=== PATIENT | female | born 1960 | race Caucasian/White ===

== ENCOUNTER 2016-09-20 05:38 | Inpatient (IN) | payer MEDICAID ==
[~2016-09-20 05:38] MED LIST: Acetaminophen 500 MG Tab PO ONE; Celecoxib 200 MG Cap PO ONE; Gabapentin 300 MG Cap PO ONE; Scopolamine 1.5 MG Transdermal Patch TOP ONE
[2016-09-20] MEDS ORDERED: Dextrose 5%-Lactated Ringers 1,000 ML IV SCH (06:00)
[2016-09-20] MEDS ORDERED: cefOXitin 2 GM in Sodium Chloride 0.9% 100 ML IV ONE (06:30)
[2016-09-20] MEDS ORDERED: cefOXitin 2 GM in Sodium Chloride 0.9% 50 ML IV ONE (06:30)
[2016-09-20] MEDS ORDERED: cefOXitin 2 GM Vial ONE (06:46)
[2016-09-20] MEDS ORDERED: Dexamethasone 4 MG/ML SDV ONE (07:19)
[2016-09-20] MEDS ORDERED: Rocuronium 50 MG/5 ML Vial ONE (07:19)
[2016-09-20] MEDS ORDERED: Neostigmine Methylsulfate 1 MG/ML 5 ML Syringe ONE (07:19)
[2016-09-20] MEDS ORDERED: fentaNYL 250 MCG/5 ML SDV ONE (07:19)
[2016-09-20] MEDS ORDERED: Propofol 200 MG/20 ML SDV ONE (07:19)
[2016-09-20] MEDS ORDERED: Succinylcholine/Normal Saline 200 MG/10 ML Syringe ONE (07:19)
[2016-09-20] MEDS ORDERED: Ondansetron 4 MG/2 ML SDV ONE (07:19)
[2016-09-20] MEDS ORDERED: Lactated Ringers 1,000 ML ONE ×2 (07:21→08:36)
[2016-09-20] MEDS ORDERED: Ropivacaine 47 ML, Dexamethasone 8 MG, EPINEPHrine 0.4 MG, Sodium Chloride 0.9% 30.6 ML NERVRT SCH ×4 (07:45)
[2016-09-20] MEDS ORDERED: Ketamine 500 MG/5 ML MDV IV SCH (07:45)
[2016-09-20] MEDS ORDERED: Lidocaine 2% 100 MG/5 ML Syringe IVPUSH ONE ×2 (07:45)
[2016-09-20] MEDS ORDERED: Insulin Aspart 100 Units/ML 3 ML Pen SUBCUT ONE ×2 (09:45→16:29)
[2016-09-20] MEDS: Liraglutide (rDNA Origin) 0.6 MG/0.1 ML 3 ML Pen SUBCUT SCH (09:55)
[2016-09-20] MEDS ORDERED: Labetalol 20 MG/4 ML Syringe IVPUSH PRN (10:55)
[2016-09-20] MEDS ORDERED: SCOPOLAMINE PATCH ASK TOP SCH (10:55)
[2016-09-20] MEDS ORDERED: Ondansetron 4 MG/2 ML SDV IVPUSH PRN (10:55)
[2016-09-20] MEDS ORDERED: hydrOXYzine HCl 50 MG/ML SDV IM PRN (10:55)
[2016-09-20] MEDS ORDERED: Metoclopramide 10 MG/2 ML SDV IV PRN (10:59)
[2016-09-20] MEDS ORDERED: diphenhydrAMINE 50 MG/ML SDV IV PRN (11:00)
[2016-09-20] MEDS: Dextrose 5%-Lactated Ringers 1,000 ML IV SCH (11:15)
[2016-09-20] MEDS: Lidocaine 0.4%/D5W 2 GM/500 ML BAG IV SCH (11:15)
[2016-09-20] MEDS: Doxycycline 100 MG in Sodium Chloride 0.9% 100 ML IV SCH ×2 (12:06→23:24)
[2016-09-20] MEDS ORDERED: Pantoprazole 40 MG Vial IVPUSH SCH (14:00)
[2016-09-20] MEDS: Gabapentin 250 MG/5 ML Solution ML 470 ML Bottle PO SCH ×3 (14:02→22:15)
[2016-09-20] MEDS ORDERED: MVI, Adult with Vitamin K 10 ML, Thiamine 200 MG, Chromium/Copper/Mang/Selen/Zn 1 ML in... IV SCH ×4 (16:00)
[2016-09-20] MEDS: Acetaminophen Soln 650 MG/20.3 ML UD Cup PO SCH ×2 (16:34→22:13)
[2016-09-20] MEDS: Heparin Sodium 5,000 Units/ML Vial SUBCUT SCH (17:25)
[2016-09-20] MEDS ORDERED: Insulin Detemir 100 Units/ML 3 ML Pen SUBCUT ONE (21:00)
[2016-09-20] MEDS: Insulin Aspart 100 Units/ML 3 ML Pen SUBCUT PRN (22:10)
[2016-09-20] MEDS: Metoprolol Tartrate 25 MG Tab PO SCH ×2 (22:13→22:19)
[2016-09-21] MEDS: Dextrose 5%-Lactated Ringers 1,000 ML IV SCH ×2 (01:02→06:43)
[2016-09-21] MEDS: Lidocaine 0.4%/D5W 2 GM/500 ML BAG IV SCH (01:03)
[2016-09-21] MEDS ORDERED: Iohexol 647 MG/ML 50 ML SDV PO STA (03:50)
[2016-09-21] MEDS: Acetaminophen Soln 650 MG/20.3 ML UD Cup PO SCH ×4 (04:30→21:53)
[2016-09-21] MEDS: Insulin Aspart 100 Units/ML 3 ML Pen SUBCUT PRN ×3 (04:41→16:41)
[2016-09-21] MEDS: Heparin Sodium 5,000 Units/ML Vial SUBCUT SCH ×2 (06:43→17:37)
[2016-09-21] MEDS ORDERED: Insulin Detemir 100 Units/ML 3 ML Pen SUBCUT ONE ×2 (06:50→20:00)
[2016-09-21] MEDS ORDERED: LORazepam 1 MG Tab PO PRN (07:11)
[2016-09-21] MEDS ORDERED: Dextrose 5%-Lactated Ringers 1,000 ML IV SCH (07:15)
--- NOTE | 2016-09-21 08:16 | PN ---
DATE OF SERVICE: 09/21/2016 SUBJECTIVE: Barbara is postop day #1. Her upper GI was normal this morning. Blood sugars have been 363, 343, and 343. She has received coverage per sliding scale. She did receive labetalol twice during the night for elevated blood pressure. Pain is controlled. Tolerating the step-one diet. She has been up and ambulating. OBJECTIVE: GENERAL: Barbara is a 55-year-old female. VITAL SIGNS: TPR is 98.6, 92, 16, blood pressure 137/73. HEENT: Negative. NECK: Supple. HEART: Regular rate and rhythm. LUNGS: Clear. ABDOMEN: Dressings dry and intact. Abdominal binder is on. She has had 80 mL out of her WANDA drain of a light pink serous drainage. EXTREMITIES: Without peripheral edema. ASSESSMENT: Laparoscopic Satnam-en-Y gastric bypass surgery, liver biopsy, repair of diaphragmatic hernia, and excision of peritoneal nodules x2 for morbid obesity, hepatomegaly, diaphragmatic hernia, peritoneal nodules x2 on date 09/20/2016. PLAN: 1. Give Lantus 30 units subcu now, 2 Lantus 40 units subcu at bedtime. 2. Step 2 without cereal gastric bypass diet. 3. Decrease IV rate to 100 mL per hour now. 4. Dressing off, may shower. 5. Restart home medication of Cymbalta 30 mg daily. 6. Cymbalta 60 mg at bedtime. 7. Ativan 1 mg p.o. b.i.d. p.r.n., and she is already on the Cozaar 100 mg p.o. daily. 8. Good pulmonary toilet encouraged. 9. We will evaluate p.r.n. or in a.m. Renée Navarrete PA-C /[id number]
[2016-09-21] MEDS: Celecoxib 200 MG Cap PO SCH (09:03)
[2016-09-21] MEDS: Losartan 50 MG Tab PO SCH (09:03)
[2016-09-21] MEDS: DULoxetine 30 MG Cap PO SCH ×2 (09:04→20:26)
[2016-09-21] MEDS: SCOPOLAMINE PATCH CHECK TOP SCH (09:08)
[2016-09-21] MEDS: Liraglutide (rDNA Origin) 0.6 MG/0.1 ML 3 ML Pen SUBCUT SCH (09:08)
--- NOTE | 2016-09-21 09:14 | CR ---
UGI wo KUB HISTORY: Post gastric bypass surgery. COMPARISON: None FINDINGS: Contrast within the gastric remnant demonstrates no extravasation. There is no obstruction . Second image demonstrates contrast predominantly in normal caliber small bowel distal to the anast omosis. Surgical drain present. Epidural catheter present.
[2016-09-21] MEDS: Gabapentin 250 MG/5 ML Solution ML 470 ML Bottle PO SCH ×3 (09:15→20:27)
--- NOTE | 2016-09-21 09:39 | OR ---
DATE OF PROCEDURE: 09/20/2016 PREOPERATIVE DIAGNOSIS: Morbid obesity. POSTOPERATIVE DIAGNOSES: 1. Morbid obesity. 2. Marked hepatomegaly. 3. Paraesophageal diaphragmatic hernia. 4. Peritoneal nodules located over the angle of His, peritoneum. OPERATIVE PROCEDURE: 1. Laparoscopic Satnam-en-Y gastric bypass, along with gastroenterostomy (71602). 2. Amaury-Cut needle liver biopsy (83893). 3. Repair of paraesophageal diaphragmatic hernia (88000). 4. Excision of peritoneal nodules at the angle of His (52967). ANESTHESIA: General. CONFECTIONERY COOKER: Renée Navarrete PA-C. INDICATIONS FOR PROCEDURE: This is a 55-year-old female presenting with longstanding morbid obesity and increasingly significant comorbidities, especially increasingly difficult to manage her type 2 diabetes. Plan is to proceed with a laparoscopic Satnam-en-Y gastric bypass. Potential risks of the procedure including bleeding, infection, leaks from various GI tract closures, problems with bowel obstruction over time, as well as possibility of cardiopulmonary, septic, or hemorrhagic complications leading to were discussed, and the patient wishes to proceed. DETAILS OF PROCEDURE: The patient was taken to the operating room. After general endotracheal anesthesia was induced, the patient was placed in a lithotomy position. The abdomen was then prepped and draped. Bilateral subcostal transversus abdominis plane bocks were then placed using 40 mL of normal saline containing bupivacaine, dexamethasone and epinephrine. These blocks were placed under continuous ultrasound guidance, and after confirming accurate location of the injection, these were done. A gastrointestinal balloon catheter was placed. At 15 cm inferior, 5 cm left of xiphoid process, a transverse incision was made and the peritoneal cavity entered under direct vision with Optiview trocar, inflated to 15 mmHg pressure of CO2. Laparoscope was then reinserted. No underlying trocar insertion site injuries were seen. Following this, 5 additional trocars were placed across the upper and mid abdomen, and general exploration was undertaken. The patient was noted to have a fairly striking hepatomegaly with the liver being densely fatty infiltrated and roughly 3 times normal volume. Amaury-Cut needle biopsy was obtained from the left lobe of the liver. Minimal bleeding of the biopsy sites was controlled with electrocautery. At this point, the omentum was then divided in the midline up to the level of the transverse colon. This allowed identification of the small bowel to the ligament of Treitz. Small bowel was then traced out 200 cm distal to that point, where it was divided transversely with a SABINE stapler. Small bowel was then traced out an additional 200 cm, where the side-to- side enteroenterostomy was accomplished with internal firing of the Endo-SABINE 60 mm stapler. The common opening was then closed transversely with the same stapler, angles anastomosed, and mesenteric defect approximated with some 0 Ethibond stitch along with fibrin sealant. The divided end of the Satnam limb was then from the mesentery for a few centimeters, which allowed an antecolic position of the Satnam limb up to the level of the gastroesophageal junction without tension. The liver was then retracted anteriorly. Two findings were present, one was a paraesophageal diaphragmatic hernia. This included some prolapse of gastric fundus and perigastric fat in a plane anterior to the course of the esophagus. As this was reduced, there were two roughly 1-2 mm whitish nodules on the peritoneum overlying the angle of His. These were excised and sent as a separate specimen to confirm that there is nothing going on in terms of any malignant process. The peritoneum anterior to the esophagogastric junction was then divided and an anterior repair of the diaphragmatic hernia accomplished with a series of 0 Ethibond sutures, reinforced with PTFE pledgets. The gastrointestinal balloon catheter was then inflated to 15 mL, pulled up snugly against the EG junction. Gastric wall over the apex balloon was then marked with electrocautery, and balloon catheter deflated and pulled up into the esophagus. The lesser omental tissue adjacent to gastric cardia was then incised, allowing dissection behind the stomach at that level. Pouch formation was initiated with a transverse firing of the SABINE stapler at the level of the cauterized cheng in the gastric cardia. Pouch was then completed with 2 additional firings up to and through the angle of His. Upon completion of the pouch, both staple lines were noted to be intact. The anvil of a 21 mm EEA stapler was attached to Stryker sump type tube. The latter was brought down through the mouth and taken out through a small opening in the gastric pouch, allowing the anvil likewise to be pulled down into the gastric pouch. The divided end of Satnam limb was then opened and the main body of the EEA stapler passed several centimeters into the small bowel, brought up the anvil and united with it, thus creating the gastrojejunostomy. Upon removal of the stapler, double donuts of mucosa were noted with it. The small bowel was closed off with a vascular staple line. Gastrojejunostomy was reinforced with some 3-0 Vicryl seromuscular stitch, along with fibrin sealant. Leak test was accomplished with injection of 120 mL of air in the gastric pouch while submerged with cefoxitin-containing saline solution. No leaks were identified. One Sawyer-Oden drain was then placed through the left subcostal trocar site and positioned adjacent to gastrojejunostomy and up over into the splenic fossa. With no further problems noted, trocars were removed, and the peritoneal cavity was deflated. Incisions were closed at the skin level with 4-0 Vicryl skin stitch and dressing applied. The patient was taken to the recovery room in satisfactory condition. Physician language assistant, Renée Navarrete, played an essential role in assisting in this case, helping to retract structures as needed, positioning the patient, as well as suturing and cutting sutures as indicated. Her presence improved patient safety and decreased operative time. Juan Bowling MD /[id number]
[2016-09-21] MEDS ORDERED: Furosemide 20 MG Tab PO ONE (13:00)
[2016-09-21] MEDS: Doxycycline 100 MG Cap PO SCH ×2 (14:24→20:26)
[2016-09-21] MEDS ORDERED: MVI, Adult with Vitamin K 10 ML, Thiamine 200 MG, Chromium/Copper/Mang/Selen/Zn 1 ML in... IV SCH ×4 (16:00)
[2016-09-21] MEDS: Pantoprazole 40 MG Tab.CR PO SCH (16:34)
[2016-09-21] MEDS ORDERED: Bisacodyl 10 MG Supp RECTAL PRN (16:50)
[2016-09-21] MEDS ORDERED: Magnesium Hydroxide 400 MG/5 ML Susp 30 ML Cup PO PRN (16:51)
[2016-09-21] MEDS ORDERED: Bisacodyl 10 MG Supp RECTAL ONE (17:15)
[2016-09-21] MEDS: Metoprolol Tartrate 25 MG Tab PO SCH (20:28)
[2016-09-21] MEDS ORDERED: Ondansetron 4 MG Tab.DIS PO PRN (21:49)
[2016-09-22] MEDS: Acetaminophen Soln 650 MG/20.3 ML UD Cup PO SCH ×4 (04:07→21:00)
[2016-09-22] MEDS: Heparin Sodium 5,000 Units/ML Vial SUBCUT SCH ×2 (06:13→18:10)
[2016-09-22] MEDS: Losartan 50 MG Tab PO SCH (08:04)
[2016-09-22] MEDS: Liraglutide (rDNA Origin) 0.6 MG/0.1 ML 3 ML Pen SUBCUT SCH (08:04)
[2016-09-22] MEDS: DULoxetine 30 MG Cap PO SCH ×2 (08:04→20:55)
[2016-09-22] MEDS: Celecoxib 200 MG Cap PO SCH (08:05)
[2016-09-22] MEDS: SCOPOLAMINE PATCH CHECK TOP SCH (08:05)
[2016-09-22] MEDS: Gabapentin 250 MG/5 ML Solution ML 470 ML Bottle PO SCH ×3 (08:05→20:55)
[2016-09-22] MEDS ORDERED: Metoprolol Tartrate 25 MG Tab PO SCH (09:00)
[2016-09-22] MEDS ORDERED: Cyanocobalamin (Vitamin B12) 1,000 MCG/ML SDV IM ONE (09:00)
[2016-09-22] MEDS: Doxycycline 100 MG Cap PO SCH ×2 (09:58→20:56)
--- NOTE | 2016-09-22 10:01 | PCM.CONS ---
H&P History of Present Illness - General Date of Service: 09/22/16 Admit Problem/Dx: Admission Diagnosis/Problem Admission Diagnosis/Problem Satnam-en-Y gastrojejunostomy Source of Information: Patient, RN notes reviewed History Limitations: Reports: No limitations - History of Present Illness Initial Comments - Free Text/Narative: This patient is a 55-year-old woman who I been asked to see by Dr. Bowling for further suggestions concerning evaluation and management of hypertension. She underwent a Satnam-en-Y gastric bypass surgery, during the postoperative period blood pressures have been elevated above desired range. Hypertension has been long-standing, she is currently treated with losartan and metoprolol. She does not like to metoprolol and would like to have it discontinued. She has no history of significant cardiac disease or cerebrovascular disease. Left Lower Back Pain Score (Numeric/FACES): 4 Abdominal Pain Score (Numeric/FACES): 0 - Related Data Allergies/Adverse Reactions: Allergies Allergy/AdvReac Type Severity Reaction Status Date / Time aspirin Allergy Cannot Verified 09/20/16 06:31 Remember codeine Allergy Cannot Verified 09/20/16 06:31 Remember metaxalone [From Skelaxin] Allergy Cannot Verified 09/20/16 06:31 Remember Home Medications: Home Meds Celecoxib [CeleBREX] 200 mg PO DAILY 09/18/16 [History] Cholecalciferol (Vitamin D3) [Vitamin D] 5,000 unit PO DAILY 09/18/16 [History] DULoxetine [Cymbalta] 30 mg PO DAILY 09/18/16 [History] DULoxetine [Cymbalta] 60 mg PO BEDTIME 09/18/16 [History] LORazepam [Ativan] 1 mg PO BID PRN 09/18/16 [History] Liraglutide [Victoza] 0.6 mg SUBCUT DAILY 09/18/16 [History] Losartan Potassium [Cozaar] 100 mg PO DAILY 09/18/16 [History] Pravastatin Sodium [Pravachol] 40 mg PO DAILY 09/18/16 [History] Acetaminophen/Diphenhydramine [Tylenol Pm Ex-Strength Caplet] 1 each PO DAILY [History] Aspirin [Adult Low Dose Aspirin EC] 81 mg PO DAILY 09/20/16 [History] Calcium Carbonate [Calcium] 500 mg PO DAILY 09/20/16 [History] Cyanocobalamin (Vitamin B-12) [Vitamin B-12] 1,000 mcg SL DAILY 09/20/16 [ History] Insulin Glargine,Hum.Rec.Anlog [Lantus Solostar] 50 units SQ BEDTIME 09/20/16 [ History] Insulin Lispro [Humalog Kwikpen U-100] 4 units SQ ASDIRECTED 09/20/16 [History] Multivitamin with Minerals [Multiple Vitamin] 2 tab PO DAILY 09/20/16 [History] Sennosides [Senokot] 8.6 mg PO DAILY 09/20/16 [History] Past Medical History HEENT History: Reports: Allergic rhinitis, Impaired vision, Otitis media Cardiovascular History: Reports: High cholesterol, Hypertension Gastrointestinal History: Reports: Cholelithiasis, Chronic constipation, GERD Genitourinary History: Reports: None TRAINING PROFESSIONAL History: Reports: Dysfunctional uterine bleeding, Musculoskeletal History: Reports: Arthritis, Back pain, chronic Neurological History: Reports: None Psychiatric History: Reports: Anxiety, Depression Endocrine/Metabolic History: Reports: Diabetes, type II, Hyperthyroidism, Obesity/BMI 30+ Hematologic History: Reports: Anemia Oncologic (Cancer) History: Reports: Breast - Infectious Disease History Infectious Disease History: Reports: Chicken pox, Measles, Mumps - Past Surgical History HEENT Surgical History: Reports: None Cardiovascular Surgical History: Reports: None GI Surgical History: Reports: Appendectomy, Cholecystectomy, Colonoscopy, EGD Female Surgical History: Reports: section, Hysterectomy, Mastectomy , Tubal ligation Endocrine Surgical History: Reports: Thyroid biopsy Neurological Surgical History: Reports: Lumbar spine, Other (see below) Other Neurological Surgeries/Procedures: spine stimulator Musculoskeletal Surgical History: Reports: Carpal tunnel Oncologic Surgical History: Reports: Mastectomy Social & Family History - Tobacco Use Smoking Status *Q: Never Smoker Second Hand Smoke Exposure: No - Caffeine Use Caffeine Use: Reports: None - Recreational Drug Use Recreational Drug Use: No H&P Review of Systems - Review of Systems: Review Of Systems: See Below General: Reports: no symptoms Pulmonary: Reports: No Symptoms Cardiovascular: Reports: no symptoms Gastrointestinal: Reports: Abdominal pain. Denies: Difficulty swallowing, Distension, Nausea, Vomiting Musculoskeletal: Reports: no symptoms Exam - Exam Exam: See Below - Vital Signs Vital Signs: Last Vital Signs Temp 98.3 F 09/22/16 07:07 Pulse 70 09/22/16 07:07 Resp 16 09/22/16 07:07 BP 121/59 L 09/22/16 07:07 Pulse Ox 93 L 09/22/16 08:00 Weight: 198 lb - Exam Quality Assessment: DVT prophylaxis General: alert, oriented, cooperative Neck: supple, trachea midline, +2 carotid pulse wo bruit Lungs: Clear to auscultation, Normal respiratory effort Cardiovascular: regular rate, regular rhythm, normal S1, normal S2 - Patient Data Result Diagrams: 09/20/16 06:00 Consult PN Assessment/Plan Procedures: Procedures BLOOD TYPING SEROLOGIC ABO (08/16/16) BLOOD TYPING SEROLOGIC RH(D) (08/16/16) RBC ANTIBODY SCREEN (08/16/16) Problem List Initiated/Reviewed/Updated: Yes My Orders last 24 hours: My Active Orders 09/22/16 09:00 Metoprolol Tartrate [Lopressor] 25 mg PO BID 09/22/16 21:00 amLODIPine [Norvasc] 5 mg PO DAILY Plan: ASSESSMENT AND RECOMMENDATIONS [id number], blood pressures have been elevated during the postoperative period. Currently taking losartan as well as very low dose metoprolol. First plan had been to increase metoprolol to 25 mg twice daily but the patient feels that she does not tolerate this medication well. For this reason will stop metoprolol and start amlodipine 5 mg by mouth daily. First dose will be 2 night at 9 PM. -Discontinue metoprolol -Continue losartan at current dose -Amlodipine 5 mg by mouth daily STATUS POST SATNAM-EN-Y GASTRIC BYPASS SURGERY -Postoperative care per Dr. Bowling Requesting Provider: DEB Date Consult Requested: 09/22/16 Reason for Consult: Hypertension Patient History Reviewed: Yes
[2016-09-22] MEDS: Pantoprazole 40 MG Tab.CR PO SCH (15:52)
[2016-09-22] MEDS: amLODIPine 5 MG Tab PO SCH (20:56)
[2016-09-22] MEDS: Insulin Aspart 100 Units/ML 3 ML Pen SUBCUT PRN (22:26)
[2016-09-23] MEDS: Heparin Sodium 5,000 Units/ML Vial SUBCUT SCH (05:06)
[2016-09-23] MEDS: Acetaminophen Soln 650 MG/20.3 ML UD Cup PO SCH ×2 (05:06→08:59)
--- NOTE | 2016-09-23 08:08 | PN ---
DATE OF SERVICE: 09/22/2016 The patient has been afebrile. Vital signs in general have been stable, although she is somewhat hypertensive at times. Given this, I think we will consult Dr. Torres regarding blood pressure management. She may need something that is somewhat higher in terms of dose or an additional agent. Otherwise, her blood sugar is coming down and blood sugar this morning was 100. I think at this point we will try moving her Victoza up to 1.2 mg today and then hold the Levemir and then see what happens with the blood sugars from that point. We will hold her discharge today as there are fairly dynamic changes ongoing with her blood sugars. Juan Bowling MD /[id number]
[2016-09-23] MEDS: Celecoxib 200 MG Cap PO SCH (08:51)
[2016-09-23] MEDS: DULoxetine 30 MG Cap PO SCH (08:52)
[2016-09-23] MEDS: Doxycycline 100 MG Cap PO SCH (08:52)
[2016-09-23] MEDS: Losartan 50 MG Tab PO SCH (08:52)
[2016-09-23] MEDS: Liraglutide (rDNA Origin) 0.6 MG/0.1 ML 3 ML Pen SUBCUT SCH (08:53)
[2016-09-23 08:54] VITALS: BP 130/80
[2016-09-23] MEDS: amLODIPine 5 MG Tab PO SCH (08:56)
[2016-09-23] MEDS: Insulin Aspart 100 Units/ML 3 ML Pen SUBCUT PRN (10:42)
--- NOTE | 2016-09-24 08:06 | DISCH ---
FINAL DIAGNOSES: 1. Morbid obesity. 2. Paraesophageal diaphragmatic hernia. 3. Fatty infiltration of the liver with marked hepatomegaly. 4. Peritoneal nodules over lining of peritoneum at angle of His x2. 5. History of hypertension. 6. History of depression. 7. History of hyperlipidemia. 8. History of type 2 diabetes mellitus. OPERATIVE PROCEDURE: Laparoscopic Satnam-en-Y gastric bypass with Amaury-Cut liver biopsy, repair of paraesophageal diaphragmatic hernia, and excision of peritoneal nodules. This was done on 09/20/2016. SUMMARY: This is a 55-year-old female presenting with longstanding morbid obesity and increasingly significant comorbidities. After preoperative evaluation and discussion, she wished to proceed with a gastric bypass procedure. This was done on the date of admission. At the time of exploration, the patient was noted to have marked hepatomegaly with liver grossly fatty infiltrated. Liver biopsies were obtained. The patient also had a moderate- sized paraesophageal diaphragmatic hernia which was repaired concurrently. She had two tiny 1 to 2 mm peritoneal nodules over the peritoneum at the angle of His, which were excised as well, confirmed that it was not any more significant pathology. Postoperatively, the patient had no major problems, tolerating step two diet and blood sugars have come down such that at the time of discharge, she will be sent home on Victoza 1.2 mg a day, increasing that dose from the pre-op dose of 0.6 mg daily and we will hold off the Humalog and Lantus as over the last 24 hours she has not required any additional insulin. Keep the blood sugars in the mid 100s otherwise she remains to be somewhat hypertensive postoperatively and Dr. Torres, Internal Medicine was consulted and added amlodipine 5 mg a day to the losartan 100 mg a day which she has taken. She will be continued with a course of doxycycline that she takes as proactively to avoid wound problems in the past. For pain control, she will be on Celebrex 200 mg a day x2 weeks and then Tylenol 650 mg p.o. q.4 hours p.r.n. Follow up will be with Renée Navarrete PA-C on 10/01/2016. The patient will be instructed to keep blood sugar log measuring 3 to 4 times over the next few days and call the coding educator at [facility] on Saturday to review her blood sugar situation. The options at that point would include increasing the Victoza dose to 1.8 mg a day if needed or other changes based on the blood sugar report.
== END 2016-09-23 13:50 | disposition home or self-care (01) | DRG 621 ==
LOC: JP.MS 05:38 → JP.SDS 05:38 → JP.2SS 10:25 → EDSTATUS 11:30
PROVIDERS: ADMIT Surgery; ATTEND Surgery
PROC: 0FB24ZX Excision of Left Lobe Liver, Percutaneous Endoscopic Approach, Diagnostic (ICD-10-PCS; principal; 2016-09-20)
PROC: 0D164ZA Bypass Stomach to Jejunum, Percutaneous Endoscopic Approach (ICD-10-PCS; principal; 2016-09-20)
PROC: 0BQS4ZZ (ICD-10-PCS; principal; 2016-09-20)
PROC: 0DBW4ZZ Excision of Peritoneum, Percutaneous Endoscopic Approach (ICD-10-PCS; principal; 2016-09-20)
PROC: 0BQR4ZZ (ICD-10-PCS; principal; 2016-09-20)
DX: E66.01 Morbid (severe) obesity due to excess calories (principal); Z68.35 Body mass index [BMI] 35.0-35.9, adult; K76.0 Fatty (change of) liver, not elsewhere classified; K66.8 Other specified disorders of peritoneum; I10 Essential (primary) hypertension; F32.9 Major depressive disorder, single episode, unspecified; E78.5 Hyperlipidemia, unspecified; Z85.3 Personal history of malignant neoplasm of breast; E11.65 Type 2 diabetes mellitus with hyperglycemia; E11.42 Type 2 diabetes mellitus with diabetic polyneuropathy; Z79.4 Long term (current) use of insulin; J30.9 Allergic rhinitis, unspecified; M54.9 Dorsalgia, unspecified; G89.29 Other chronic pain; H54.7 Unspecified visual loss; Z88.6 Allergy status to analgesic agent; Z88.5 Allergy status to narcotic agent; Z88.8 Allergy status to other drugs, medicaments and biological substances
CPT/HCPCS: 36415; 74240; 74240-26; 80048; 82962; 83036; 83735; 84100; 86850; 86900; 86901; 88305; 88307; 88313; 88341; 88342; A9270-GY; C9113; J0171; J0694; J1100; J1644; J2001; J2405; J2704; J2795; J3010; J3410; J3411; J3420; J7030; J7040; J7042; J7050; J7120; Q9967

== ENCOUNTER 2016-10-19 09:45 | Day surgery (SDC) | payer MEDICAID ==
[2016-10-19] MEDS ORDERED: Cyanocobalamin (Vitamin B12) 1,000 MCG/ML SDV IM ONE (11:00)
[2016-10-19] MEDS ORDERED: Lactated Ringers 1,000 ML IV SCH (11:00)
[2016-10-19] MEDS ORDERED: Glycopyrrolate 0.2 MG/ML 2 ML SYRINGE IVPUSH ONE (11:00)
[2016-10-19] MEDS ORDERED: fentaNYL 100 MCG/2 ML SDV ONE (11:56)
[2016-10-19] MEDS ORDERED: Propofol 200 MG/20 ML SDV ONE (11:56)
[2016-10-19] MEDS ORDERED: Midazolam 1 MG/ML 2 ML SDV ONE (11:56)
[2016-10-19] MEDS ORDERED: MVI, Adult with Vitamin K 10 ML, Thiamine 200 MG, Chromium/Copper/Mang/Selen/Zn 1 ML in... IV ONE ×4 (12:00)
[2016-10-19 14:26] VITALS: BP 117/65
--- NOTE | 2016-10-21 14:34 | OR ---
DATE OF PROCEDURE: 10/19/2016 PREOPERATIVE DIAGNOSIS: Probable stricture of gastrojejunostomy. POSTOPERATIVE DIAGNOSIS: Stricture of gastrojejunostomy. OPERATIVE PROCEDURE: Upper GI endoscopy with dilation of gastrojejunostomy ([id number]). ANESTHESIA: IV sedation. INDICATION FOR PROCEDURE: A 55-year-old female status post Satnam-en-Y gastric bypass on 09/20/2016, presents now with symptoms suggestive of stricturing at her gastrojejunostomy. Plan is to proceed with upper GI endoscopy with dilation as indicated. Potential risks including bleeding and perforation were discussed, and the patient wishes to proceed. DETAILS OF PROCEDURE: The patient was taken to the operating room, placed in the left lateral decubitus position. IV sedation was administered, after which the upper GI endoscope was passed orally through the esophagus and into the gastric pouch. No retained food or fluid was noted. The patient was noted to have a quite tight stricture at the gastrojejunostomy. Bard gastrointestinal catheter was centered across the anastomosis with fluoroscopic surveillance and inflated to 36-Slovenian size, it was held in position for 1 minute, after which the balloon catheter was deflated and withdrawn. Scope could easily then be passed through the anastomosis with no complications being noted. Scope was then withdrawn, and the procedure concluded. The patient was taken to the recovery room in satisfactory condition. Juan Bowling MD /[id number]
== END 2016-10-19 14:25 | disposition home or self-care (01) ==
LOC: JP.SDS 09:45
PROVIDERS: ATTEND Surgery
DX: K91.89 Other postprocedural complications and disorders of digestive system (principal); Z98.84 Bariatric surgery status; Z88.8 Allergy status to other drugs, medicaments and biological substances; Z79.899 Other long term (current) drug therapy
CPT/HCPCS: 43245; J2250; J2704; J3010; J3411; J7120

== ENCOUNTER → 2016-11-02 | Day surgery (SDC) | payer MEDICAID ==
[~2016-11-02] MED LIST changes: -Acetaminophen 500 MG Tab PO ONE; -Celecoxib 200 MG Cap PO ONE; +Cyanocobalamin (Vitamin B12) 1,000 MCG/ML SDV IM ONE; +Fluconazole/Normal Saline 400 MG in Premix Bag 1 BAG IV ONE; +Fluconazole/Normal Saline 400 MG in Premix Bag 200 BAG IV ONE; -Gabapentin 300 MG Cap PO ONE; +Glycopyrrolate 0.2 MG/ML 2 ML SYRINGE IVPUSH ONE; +HYDROmorphone 1 MG/ML Syringe IVPUSH ONE; +Lactated Ringers 1,000 ML IV SCH; +MVI, Adult with Vitamin K 10 ML, Thiamine 200 MG, Chromium/Copper/Mang/Selen/Zn 1 ML in... IV ONE; +Midazolam 1 MG/ML 2 ML SDV ONE; +Propofol 200 MG/20 ML SDV ONE; -Scopolamine 1.5 MG Transdermal Patch TOP ONE; +fentaNYL 100 MCG/2 ML SDV ONE
[2016-11-02 13:28] VITALS: BP 141/89
--- NOTE | 2016-11-07 08:25 | OR ---
DATE OF PROCEDURE: 11/02/2016 PREOPERATIVE DIAGNOSIS: Probable strictured gastrojejunostomy. POSTOPERATIVE DIAGNOSIS: Moderate stricture at gastrojejunostomy. OPERATIVE PROCEDURE: Upper GI endoscopy with dilation gastrojejunostomy (50337). ANESTHESIA: IV sedation. INDICATION FOR PROCEDURE: This is a 55-year-old status post Satnam-en-Y gastric bypass on 09/20/2016. She had one past stricture of the gastrojejunostomy dilated on 10/19/2016 and now presents with symptoms suggestive of recurrent stricturing. Plan is to treat with upper GI endoscopy with dilation as indicated. Potential risks including bleeding and perforation were discussed, and the patient wishes to proceed. DETAILS OF THE PROCEDURE: The patient was taken to the operating room and placed in a left lateral decubitus position. IV sedation was administered, after which the upper GI endoscope was passed orally through the length of the esophagus into the gastric pouch. No retained food or fluid was noted. The patient was noted to have a moderate strictured gastrojejunostomy with 1 cm scope not quite being able to pass through the anastomosis. A Bard gastrointestinal catheter was entered across the anastomosis and inflated to 36-Burundian size, was held in position for 1 minute, after which the balloon catheter was deflated and withdrawn. The scope could easily then be passed through the anastomosis. No complications were noted and the patient was taken to the recovery room in satisfactory condition. Juan Bowling MD /[id number]
== END ==
LOC: JP.SDS 06:48
PROVIDERS: ATTEND Surgery
DX: K91.89 Other postprocedural complications and disorders of digestive system (principal); I10 Essential (primary) hypertension; E11.9 Type 2 diabetes mellitus without complications; Z98.84 Bariatric surgery status; Z88.8 Allergy status to other drugs, medicaments and biological substances; Z91.040 Latex allergy status
CPT/HCPCS: 43245; J1170; J1450; J2250; J2704; J3010; J3411; J3420; J7120

== ENCOUNTER 2016-11-27 06:59 | Day surgery (SDC) | payer MEDICAID ==
[2016-11-27] MEDS ORDERED: Propofol 200 MG/20 ML SDV ONE (07:07)
[2016-11-27] MEDS ORDERED: fentaNYL 100 MCG/2 ML SDV ONE (07:07)
[2016-11-27] MEDS ORDERED: Midazolam 1 MG/ML 2 ML SDV ONE (07:07)
[2016-11-27] MEDS ORDERED: Glycopyrrolate 0.2 MG/ML 2 ML SYRINGE IVPUSH ONE (07:30)
[2016-11-27] MEDS ORDERED: Lactated Ringers 1,000 ML IV SCH (07:30)
[2016-11-27] MEDS ORDERED: Cyanocobalamin (Vitamin B12) 1,000 MCG/ML SDV IM ONE (07:30)
[2016-11-27] MEDS ORDERED: MVI, Adult with Vitamin K 10 ML, Thiamine 200 MG, Chromium/Copper/Mang/Selen/Zn 1 ML in... IV ONE ×4 (07:30)
[2016-11-27 11:00] VITALS: BP 118/68
--- NOTE | 2016-12-03 12:46 | OR ---
DATE OF PROCEDURE: 11/27/2016 PREOPERATIVE DIAGNOSIS: Probable strictured gastrojejunostomy. POSTOPERATIVE DIAGNOSIS: Stricture at gastrojejunostomy. OPERATIVE PROCEDURE: Upper GI endoscopy with dilation of gastrojejunostomy (92243). ANESTHESIA: IV sedation. INDICATION FOR PROCEDURE: This is a 56-year-old female presenting with probable stricturing at her gastrojejunostomy status post Satnam-en-Y gastric bypass on 09/20/2016. Plan is to proceed with upper GI endoscopy with dilation as indicated. Potential risks including bleeding and perforation were discussed, and the patient wishes to proceed. DETAILS OF PROCEDURE: The patient was taken to the operating room and placed in a left lateral decubitus position. IV sedation was administered, after which the upper GI endoscope was passed orally through the length of the esophagus and into the gastric pouch. No retained food or fluid was noted. The patient was noted to have moderate stricture at the anastomosis. A Bard gastrointestinal balloon catheter was then centered across the anastomosis and inflated to 36-Norwegian size, was held in position for 1 minute after which the balloon catheter deflated and withdrawn. The scope could easily be passed across the anastomosis. No complications were evident. The scope was then removed. The patient was taken to the recovery room in satisfactory condition. Juan Bowling MD /[id number]
== END 2016-11-27 11:35 | disposition home or self-care (01) ==
LOC: JP.SDS 06:59
PROVIDERS: ATTEND Surgery
DX: K94.23 Gastrostomy malfunction (principal); I10 Essential (primary) hypertension; E11.9 Type 2 diabetes mellitus without complications; Z98.84 Bariatric surgery status
CPT/HCPCS: 43245; J2250; J2704; J3010; J3411; J3420; J7120

== ENCOUNTER 2016-12-07 10:35 | Day surgery (SDC) | payer MEDICAID ==
[2016-12-07] MEDS ORDERED: Lactated Ringers 1,000 ML IV SCH (11:00)
[2016-12-07] MEDS ORDERED: Cyanocobalamin (Vitamin B12) 1,000 MCG/ML SDV IM ONE (11:30)
[2016-12-07] MEDS ORDERED: Glycopyrrolate 0.2 MG/ML 2 ML SYRINGE IVPUSH ONE (11:30)
[2016-12-07] MEDS ORDERED: MVI, Adult with Vitamin K 10 ML, Thiamine 200 MG, Chromium/Copper/Mang/Selen/Zn 1 ML in... IV ONE ×4 (12:00)
[2016-12-07] MEDS ORDERED: fentaNYL 100 MCG/2 ML SDV ONE (12:55)
[2016-12-07] MEDS ORDERED: Midazolam 1 MG/ML 2 ML SDV ONE (12:55)
[2016-12-07] MEDS ORDERED: Propofol 200 MG/20 ML SDV ONE (12:55)
[2016-12-07] MEDS ORDERED: ePHEDrine 50 MG/ML SDV ONE (13:43)
[2016-12-07] MEDS ORDERED: Rocuronium 50 MG/5 ML Vial ONE (13:43)
[2016-12-07] MEDS ORDERED: Meropenem 500 MG SDV ONE (13:49)
[2016-12-07 16:24] VITALS: BP 122/78
--- NOTE | 2016-12-12 08:36 | OR ---
DATE OF PROCEDURE: 12/07/2016 PREOPERATIVE DIAGNOSIS: Probable strictured gastrojejunostomy. POSTOPERATIVE DIAGNOSIS: Moderate strictured gastrojejunostomy. OPERATIVE PROCEDURE: Upper GI endoscopy with dilation gastrojejunostomy ([id number]). ANESTHESIA: IV sedation. INDICATION FOR PROCEDURE: The patient is status post Satnam-en-Y gastric bypass on 09/30/2016. She had a stricture at the gastrojejunostomy dilated 10 days ago and now presents with symptoms of recurrence of the stricturing. Plan is to proceed with upper GI endoscopy with dilation as indicated. Potential risks including bleeding and perforation were discussed, and the patient wishes to proceed. DETAILS OF PROCEDURE: The patient was taken to the operating room and placed in a left lateral decubitus position. IV sedation was administered, after which the upper GI endoscope was passed orally through the length of the esophagus and into the gastric pouch. The patient noted to have moderate stricture, it was much less narrowed than the stricture 10 days ago. A 9 mm scope could not quite be passed through the anastomosis. Initially, a Bard gastrointestinal catheter was centered across the anastomosis using fluoroscopic surveillance and inflated to 36-Guyanese size. Upon its deflation still noted to be quite a bit of dense scar formation with the scope just being barely able to get through that anastomosis. Given this a 45-Guyanese dilator was then placed and inflated to 30 psi, this was held in position for 1 minute, after which the balloon catheter was deflated and withdrawn. This resulted in much more significant dilation. No complications were noted. The scope was easily passed through the anastomosis. At this point, the procedure was concluded with removal of the scope. The patient was taken to the recovery room in satisfactory condition. Juan Bowling MD /[id number]
== END 2016-12-07 16:26 | disposition home or self-care (01) ==
LOC: JP.SDS 10:35
PROVIDERS: ATTEND Surgery
DX: K95.89 Other complications of other bariatric procedure (principal); I10 Essential (primary) hypertension; E66.9 Obesity, unspecified; Z68.30 Body mass index [BMI] 30.0-30.9, adult; F41.9 Anxiety disorder, unspecified; F32.9 Major depressive disorder, single episode, unspecified; E78.00 Pure hypercholesterolemia, unspecified; Z90.49 Acquired absence of other specified parts of digestive tract; Z98.890 Other specified postprocedural states; Z88.8 Allergy status to other drugs, medicaments and biological substances; Z91.09 Other allergy status, other than to drugs and biological substances; Z90.710 Acquired absence of both cervix and uterus; Z98.51 Tubal ligation status
CPT/HCPCS: 43245; 82962; J2185; J2250; J2704; J3010; J3411; J3420; J7120

== ENCOUNTER 2016-12-17 08:21 | Day surgery (SDC) | payer MEDICAID ==
[2016-12-17] MEDS ORDERED: Lactated Ringers 1,000 ML IV SCH (09:00)
[2016-12-17] MEDS ORDERED: Cyanocobalamin (Vitamin B12) 1,000 MCG/ML SDV IM ONE (09:30)
[2016-12-17] MEDS ORDERED: Glycopyrrolate 0.2 MG/ML 2 ML SDV IVPUSH ONE (09:30)
[2016-12-17] MEDS ORDERED: MVI, Adult with Vitamin K 10 ML, Thiamine 200 MG, Chromium/Copper/Mang/Selen/Zn 1 ML in... IV ONE ×4 (10:00)
[2016-12-17] MEDS ORDERED: Propofol 200 MG/20 ML SDV ONE (10:43)
[2016-12-17] MEDS ORDERED: Midazolam 1 MG/ML 2 ML SDV ONE (10:43)
[2016-12-17] MEDS ORDERED: fentaNYL 100 MCG/2 ML SDV ONE (10:43)
[2016-12-17 12:06] VITALS: BP 110/72
--- NOTE | 2016-12-18 11:41 | OR ---
DATE OF PROCEDURE: 12/17/2016 PREOPERATIVE DIAGNOSIS: Probable strictured gastrojejunostomy. POSTOPERATIVE DIAGNOSIS: Moderate strictured gastrojejunostomy. OPERATIVE PROCEDURE: Upper GI endoscopy, dilation of gastrojejunostomy (59820). ANESTHESIA: IV sedation. 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 Plan is to proceed with upper GI endoscopy with dilation as indicated. Potential risks including bleeding and perforation were discussed, and the patient wishes to proceed. DETAILS OF PROCEDURE: The patient was taken to the operating room and placed in a left lateral decubitus position. IV sedation was administered, after which the upper GI endoscope was passed orally through the length of the esophagus and into the gastric pouch. No retained food or fluid was noted. The patient was noted to have moderate strictured gastrojejunostomy with the 9 mm scope not quite able to be passed through the anastomosis. A Bard gastrointestinal catheter was centered across the anastomosis with fluoroscopic surveillance and inflated to 45-Albanian size. It was held in this position for 1 minute, after which the balloon catheter was deflated and withdrawn. The scope could easily then be passed through the anastomosis. No complications were noted, and the scope was withdrawn. The patient was taken to the recovery room in a satisfactory condition. There were no evident complications. Juan Bowling MD /[id number]
== END 2016-12-17 12:10 | disposition home or self-care (01) ==
LOC: JP.SDS 08:21
PROVIDERS: ATTEND Surgery
DX: K95.89 Other complications of other bariatric procedure (principal); I10 Essential (primary) hypertension; E11.9 Type 2 diabetes mellitus without complications; E66.9 Obesity, unspecified; Z88.8 Allergy status to other drugs, medicaments and biological substances; Z91.09 Other allergy status, other than to drugs and biological substances
CPT/HCPCS: 43245; J2250; J2704; J3010; J3411; J3420; J7120; J3490

== ENCOUNTER 2016-12-28 05:30 | Day surgery (SDC) | payer MEDICAID ==
[2016-12-28] MEDS ORDERED: Lactated Ringers 1,000 ML IV SCH (06:00)
[2016-12-28] MEDS ORDERED: Cyanocobalamin (Vitamin B12) 1,000 MCG/ML SDV IM ONE (06:00)
[2016-12-28] MEDS ORDERED: MVI, Adult with Vitamin K 10 ML, Thiamine 200 MG, Chromium/Copper/Mang/Selen/Zn 1 ML in... IV ONE ×4 (07:00)
[2016-12-28] MEDS ORDERED: Midazolam 1 MG/ML 2 ML SDV ONE (07:10)
[2016-12-28] MEDS ORDERED: fentaNYL 100 MCG/2 ML SDV ONE (07:10)
[2016-12-28] MEDS ORDERED: Propofol 200 MG/20 ML SDV ONE (07:10)
[2016-12-28] MEDS ORDERED: Glycopyrrolate 0.2 MG/ML 2 ML SDV IVPUSH ONE (07:15)
[2016-12-28 09:30] VITALS: BP 124/71
--- NOTE | 2016-12-31 13:46 | OR ---
DATE OF PROCEDURE: 12/28/2016 PREOPERATIVE DIAGNOSIS: Stricture gastrojejunostomy. POSTOPERATIVE DIAGNOSIS: Stricture gastrojejunostomy. OPERATIVE PROCEDURE: Upper GI endoscopy with dilation and gastrojejunostomy (78956). ANESTHESIA: IV sedation. INDICATIONS FOR PROCEDURE: This is a 56-year-old presenting with some recurrent stricturing at her gastrojejunostomy, status post Satnam-en-Y gastric bypass on 09/20/2016. Plan is to proceed with upper GI endoscopy with dilation as indicated. Potential risks including bleeding and perforation were discussed, and the patient wishes to proceed. DETAILS OF PROCEDURE: The patient was taken to the operating room and placed in a left lateral decubitus position. IV sedation was administered, after which the upper GI endoscope was passed orally through the length of the esophagus and into the gastric pouch. The patient was noted to have a fairly mild stricture at this point with the 1 cm scope not quite being able to pass through the anastomosis. gastrointestinal catheter was then centered across the anastomosis with fluoroscopic surveillance and inflated to 45- Mongolian size. It was held in position for 1 minute, after which the balloon catheter was deflated and withdrawn. The scope could easily then be passed through the anastomosis. No complications were noted and the patient taken to the recovery room in satisfactory condition. Juan Bowling MD /[id number]
== END 2016-12-28 10:35 | disposition home or self-care (01) ==
LOC: JP.SDS 05:30
PROVIDERS: ATTEND Surgery
DX: K95.89 Other complications of other bariatric procedure (principal); I10 Essential (primary) hypertension; E11.9 Type 2 diabetes mellitus without complications; K21.9 Gastro-esophageal reflux disease without esophagitis; E05.90 Thyrotoxicosis, unspecified without thyrotoxic crisis or storm; E55.9 Vitamin D deficiency, unspecified; E66.9 Obesity, unspecified; Z91.09 Other allergy status, other than to drugs and biological substances; Z88.8 Allergy status to other drugs, medicaments and biological substances; Z90.49 Acquired absence of other specified parts of digestive tract; Z98.890 Other specified postprocedural states; Z98.84 Bariatric surgery status; Z90.710 Acquired absence of both cervix and uterus; Z98.51 Tubal ligation status; Z68.30 Body mass index [BMI] 30.0-30.9, adult
CPT/HCPCS: 43245; J2250; J2704; J3010; J3411; J3420; J7120; J3490

== ENCOUNTER 2017-01-18 07:45 | Day surgery (SDC) | payer MEDICAID ==
[2017-01-18] MEDS ORDERED: Propofol 200 MG/20 ML SDV ONE (07:59)
[2017-01-18] MEDS ORDERED: Midazolam 1 MG/ML 2 ML SDV ONE (07:59)
[2017-01-18] MEDS ORDERED: fentaNYL 100 MCG/2 ML SDV ONE (07:59)
[2017-01-18] MEDS ORDERED: Glycopyrrolate 0.2 MG/ML 2 ML SDV IVPUSH ONE (08:15)
[2017-01-18] MEDS ORDERED: MVI, Adult with Vitamin K 10 ML, Thiamine 200 MG, Chromium/Copper/Mang/Selen/Zn 1 ML in... IV ONE ×4 (08:15)
[2017-01-18] MEDS ORDERED: Cyanocobalamin (Vitamin B12) 1,000 MCG/ML SDV IM ONE (08:15)
[2017-01-18] MEDS ORDERED: Lactated Ringers 1,000 ML IV ONE (08:15)
[2017-01-18 11:55] VITALS: BP 126/74
--- NOTE | 2017-01-21 16:21 | OR ---
DATE OF PROCEDURE: 01/18/2017 PREOPERATIVE DIAGNOSIS: Probable recurrent stricturing at gastrojejunostomy. POSTOPERATIVE DIAGNOSIS: Mild stricturing at gastrojejunostomy. PROCEDURE PERFORMED: Upper gastrointestinal endoscopy with dilation of gastrojejunostomy (50919). ANESTHESIA: IV sedation. INDICATION FOR PROCEDURE: This is a 56-year-old female presenting with symptoms suggestive of recurrent stricturing at the gastrojejunostomy. Plan is to proceed with upper GI endoscopy with dilation as indicated. Potential risks including bleeding and perforation were discussed, and the patient wishes to proceed. DESCRIPTION OF PROCEDURE: The patient was taken to the operating room and placed in a left lateral decubitus position. IV sedation was administered, after which the upper GI endoscope was passed orally through the length of the esophagus and into the gastric pouch. The gastrojejunostomy was actually open enough that a 1 cm scope was able to be passed through that area and otherwise, there were no marginal ulcers or other signs of inflammation. Bard gastrointestinal catheter was centered across the anastomosis and inflated to 45-Welsh size. This was held in position for one minute, after which the balloon catheter was deflated and withdrawn. The anastomosis was reexamined. Some dilation was confirmed to have occurred with no other complications. The scope was then withdrawn and the procedure concluded. The patient was taken to the recovery room in satisfactory condition. Juan Bowling MD /[id number]
== END 2017-01-18 11:55 | disposition home or self-care (01) ==
LOC: JP.SDS 07:45
PROVIDERS: ATTEND Surgery
DX: K94.23 Gastrostomy malfunction (principal); I10 Essential (primary) hypertension; E78.5 Hyperlipidemia, unspecified; E11.9 Type 2 diabetes mellitus without complications; Z79.899 Other long term (current) drug therapy
CPT/HCPCS: 43245; J2250; J2704; J3010; J3411; J3420; J7120; J3490

== ENCOUNTER 2017-03-12 06:33 | Day surgery (SDC) | payer MEDICAID ==
[~2017-03-12 06:33] MED LIST changes: -Cyanocobalamin (Vitamin B12) 1,000 MCG/ML SDV IM ONE; -Fluconazole/Normal Saline 400 MG in Premix Bag 1 BAG IV ONE; -Fluconazole/Normal Saline 400 MG in Premix Bag 200 BAG IV ONE; -Glycopyrrolate 0.2 MG/ML 2 ML SYRINGE IVPUSH ONE; -HYDROmorphone 1 MG/ML Syringe IVPUSH ONE; -Lactated Ringers 1,000 ML IV SCH; -MVI, Adult with Vitamin K 10 ML, Thiamine 200 MG, Chromium/Copper/Mang/Selen/Zn 1 ML in... IV ONE
[2017-03-12] MEDS ORDERED: Lactated Ringers 1,000 ML IV SCH (07:00)
[2017-03-12] MEDS ORDERED: Cyanocobalamin (Vitamin B12) 1,000 MCG/ML SDV IM ONE (07:30)
[2017-03-12] MEDS ORDERED: Glycopyrrolate 0.2 MG/ML 2 ML SDV IVPUSH ONE (07:30)
[2017-03-12] MEDS ORDERED: MVI, Adult with Vitamin K 10 ML, Thiamine 200 MG, Chromium/Copper/Mang/Selen/Zn 1 ML in... IV ONE ×4 (08:00)
[2017-03-12 09:45] VITALS: BP 142/90
--- NOTE | 2017-03-14 14:26 | OR ---
DATE OF PROCEDURE: 03/12/2017 PREOPERATIVE DIAGNOSIS: Possible stricture at gastrojejunostomy. POSTOPERATIVE DIAGNOSIS: Normal exam status post gastric bypass (wide open gastrojejunostomy). OPERATIVE PROCEDURE: Upper GI endoscopy with dilation of gastrojejunostomy ([id number]). ANESTHESIA: IV sedation. INDICATION FOR PROCEDURE: The patient is status post Satnam-en-Y gastric bypass on 09/20/2016. She presents with symptoms suggestive of possible stricture of her gastrojejunostomy. Potential risks including bleeding and perforation were discussed, and the patient wishes to proceed. DETAILS OF PROCEDURE: The patient was taken to the operating room and placed in a left lateral decubitus position. IV sedation was administered, after which the upper GI endoscope was passed orally through the length of the esophagus, through the gastrojejunostomy and 20 cm into the Satnam limb. Findings, at this point, appeared to be essentially normal. There was no significant stricturing at the gastrojejunostomy or inflammation at that level. The scope easily passed through that area. A Bard gastrointestinal balloon catheter was inflated across the gastrojejunostomy to 54-Syrian. This resulted in no significant change in the diameter, potentially confirming that there was satisfactory luminal diameter. At this point, the dilator was then removed and the scope was also then removed. The patient was taken to the recovery room in a satisfactory condition. At this point, the patient will need some additional dietary instructions. Follow up will be with Renée Navarrete in one month. Juan Bowling MD /[id number]
== END 2017-03-12 11:10 | disposition home or self-care (01) ==
LOC: JP.SDS 06:33
PROVIDERS: ATTEND Surgery
DX: K95.09 Other complications of gastric band procedure (principal); I10 Essential (primary) hypertension; E78.00 Pure hypercholesterolemia, unspecified; K21.9 Gastro-esophageal reflux disease without esophagitis; E11.9 Type 2 diabetes mellitus without complications; F41.9 Anxiety disorder, unspecified; F32.9 Major depressive disorder, single episode, unspecified; E55.9 Vitamin D deficiency, unspecified; E66.9 Obesity, unspecified; Z90.49 Acquired absence of other specified parts of digestive tract; Z90.710 Acquired absence of both cervix and uterus; Z98.51 Tubal ligation status; Z98.890 Other specified postprocedural states; Z88.8 Allergy status to other drugs, medicaments and biological substances; Z91.048 Other nonmedicinal substance allergy status; Z68.30 Body mass index [BMI] 30.0-30.9, adult
CPT/HCPCS: 43245; J2250; J2704; J3010; J3411; J3420; J7120; J3490